=== PATIENT | male | born 1985 | race Caucasian/White ===

== ENCOUNTER 2017-07-03 06:23 | Emergency (ER) | payer BC ==
[~2017-07-03] VITALS: Ht 185.4 cm; Wt 91.2 kg
[2017-07-03 06:31] VITALS: BP 155/87
[2017-07-03] MEDS ORDERED: ELVI1TAB PO (06:34)
--- NOTE | 2017-07-03 06:36 | NUR ---
AMBULATED TO ER BED 4
--- NOTE | 2017-07-03 06:41 | NUR ---
31Y/M PT. PRESENTS TO ED WITH C/O LT. FLANK PAIN X 1 DAY. ALSO STATES FEELING NAUSEA, HX. KIDNEY STONE. AAO X4, AMBULATORY WITH STEADY GAIT. RESPIRATIONS ROOM AIR, EVEN AND UNLABORED. ABDOMEN SOFT AND NON TENDER. C/O LT. FLANK PAIN 05/31. VSS, ER MADE AWARE OF PT. STATUS.
--- NOTE | 2017-07-03 06:43 | NUR ---
UA DONE. ER MD AT BEDSIDE FOR EVAL
[2017-07-03] MEDS ORDERED: NACL 0.9% 1,000 ML IV ONE (07:06)
[2017-07-03] MEDS ORDERED: MORPHINE SULFATE 4 MG/ML SYR IVP ONE (07:10)
[2017-07-03] MEDS ORDERED: ONDANSETRON 4 MG/2 ML VIAL IVP ONE (07:10)
[2017-07-03 07:17] LABS: HEMATOCRIT 45.1 % (36-52); HEMOGLOBIN 15.1 g/dL (12.0-18.0); MEAN CORPUSCULAR HEMOGLOBIN 30 pg (27-31); MEAN CORPUSCULAR HGB CONC 34 g/dL (33-37); MEAN CORPUSCULAR VOLUME 89 fL (80-94); PLATELET COUNT (AUTO) 248 K/uL (140-450); RED BLOOD CELL COUNT(AUTO) 5.06 MIL/uL (4.20-6.10); RED CELL DISTRIBUTION WIDTH 13.4 % (11.6-13.7); WHITE BLOOD COUNT (AUTO) 10.1 K/uL (4.8-10.8)
--- NOTE | 2017-07-03 07:24 | NUR ---
REPORT GIVEN TO NATHALY RIZVI. PT. RESTING IN BED, COMPLAINING OF PAIN. ER MD MADE AWARE, PAIN MEDS GIVEN.
--- NOTE | 2017-07-03 07:25 | NUR ---
PT TO CT VIA W/C ACCOMPANIED BY JEWEL BEARING DRILLER
--- NOTE | 2017-07-03 07:30 | NUR ---
PT RETURNED FROM CT VIA W/C ACCOMPANIED BY [employer]PERATIONS MANAGER
[2017-07-03 07:31] LABS: APPEARANCE,URINE HAZY (CLEAR); BILIRUBIN,URINE 1+ (NEGATIVE); BLOOD, URINE 3+ (NEGATIVE); COLOR,URINE YELLOW (YELLOW); LEUKOCYTE ESTERASE ,URINE NEGATIVE (NEGATIVE); NITRITE, URINE NEGATIVE (NEGATIVE); PH,URINE 6.5 (5.0-9.0); UGLUCOSE NEGATIVE (NEGATIVE)
[2017-07-03 07:32] LABS: EOSINOPHILS % (MANUAL) 3 % (0-4); LYMPHOCYTES % (MANUAL) 32 % (20-46); MONOCYTES % (MANUAL) 10 % (5-12)
[2017-07-03 07:34] LABS: ANION GAP 11.3 (8-16); CARBON DIOXIDE 27.4 mmol/L (21-32); CREATININE 1.2 mg/dL (0.7-1.3); POTASSIUM 3.7 mmol/L (3.5-5.1)
[2017-07-03 07:38] LABS: ALBUMIN 3.4 g/dL (3.4-5.0); TOTAL BILIRUBIN 0.4 mg/dL (0.0-1.0)
[2017-07-03] MEDS ORDERED: METOCLOPRAMIDE 10 MG/2 ML INJ VIAL ONE (07:51)
[2017-07-03 07:52] LABS: RBC,URINE 11-20 (MOD) /HPF (0-5); WBC,URINE 0-5 (RARE) /HPF (0-5)
[2017-07-03] MEDS ORDERED: KETOROLAC 30 MG/ML VIAL IVP SCH (08:00)
--- NOTE | 2017-07-03 08:32 | NUR ---
Patient discharged with v/s stable. Written and verbal after care instructions given and explained. Patient alert, oriented and verbalized understanding of instructions. Ambulatory with steady gait. All questions addressed prior to discharge. ID band removed. Patient advised to follow up with PMD. Rx of Flomax and Motrin given. Patient educated on indication of medication including possible reaction and side effects. Opportunity to ask questions provided and answered.
[2017-07-03 08:33] VITALS: BP 138/77
[2017-07-03] MEDS ORDERED: METOCLOPRAMIDE 10 MG/2 ML INJ VIAL IVP ONE (08:35)
== END 2017-07-03 08:32 | disposition home or self-care (01) ==
LOC: MED 06:33
DX: N13.39 Other hydronephrosis (principal); N20.0 Calculus of kidney; Z79.899 Other long term (current) drug therapy
CPT/HCPCS: 36415; 74176; 80053; 81001; 83690; 85025; 96361; 96374; 96375; 99285; J1885; J2270; J2405; J2765; J7030